=== PATIENT | male | born 1970 | race African-American/Black ===

== ENCOUNTER 2018-11-23 15:27 | Inpatient (IN) | payer BC ==
[2018-11-23 15:48] VITALS: BMI 25.2
[2018-11-23] MEDS ORDERED: KETOROLAC TROMETHAMINE 30 MG/1 ML VIAL IVPUSH ONE ×2 (16:13→18:30)
[2018-11-23] MEDS ORDERED: SODIUM CHLORIDE 1,000 ML IV STA ×2 (16:13→18:30)
[2018-11-23] MEDS ORDERED: KETOROLAC TROMETHAMINE 30 MG/1 ML VIAL ONE ×2 (16:21→18:36)
[2018-11-23] MEDS ORDERED: ACETAMINOPHEN 1000 MG/100 ML VIAL (NON FORMULARY) IVPB ONE (16:34)
[2018-11-23 16:41] LABS: URINE APPEARANCE SLCLOUDY; URINE BILIRUBIN NEGATIVE (<2.0 mg/dL); URINE COLOR YELLOW; URINE GLUCOSE (UA) NEGATIVE (NEGATIVE); URINE KETONE NEGATIVE (NEGATIVE); URINE LEUK ESTERASE NEGATIVE (NEGATIVE); URINE NITRITE NEGATIVE (NEGATIVE); URINE PROTEIN 1+ (NEGATIVE); URINE UROBILINOGEN NEGATIVE mg/dL (0.2-1.0)
[2018-11-23] MEDS ORDERED: morphine SULFATE 4 MG/ML VIAL ONE (16:46)
[2018-11-23] MEDS ORDERED: hydrALAZINE HCL 20 MG/ML VIAL ONE (16:46)
[2018-11-23 16:49] LABS: URINE MUCUS RARE
[2018-11-23] MEDS ORDERED: hydrALAZINE HCL 20 MG/ML VIAL IVPUSH ONE (16:51)
[2018-11-23] MEDS ORDERED: morphine CARPU-JECT 4 MG/1 ML DISP.SYRIN IVPUSH ONE (16:51)
[2018-11-23 16:52] LABS: BASO % 0.4 % (0-2.0); EOS % 0.2 % (0-4.5); HEMATOCRIT 44.8 % (35.4-49); HEMOGLOBIN 15.4 GM/dL (11.7-16.9); LYMPH % 10.3 % (8-40); MCH 32.4 pg (25.7-33.7); MCHC 34.5 g/dl (32.0-35.9); MEAN CELL VOLUME 93.9 fl (80-96); MEAN PLT VOLUME 8.1 fl (7.5-11.1); MONO % 3.6 % (3.8-10.2); NEUT % 85.5 % (42.8-82.8); PLATELET COUNT 256 K/MM3 (134-434); RBC 4.77 M/mm3 (4.00-5.60); RDW 13.2 % (11.9-15.9)
--- NOTE | 2018-11-23 16:54 | PDOC ---
History of Present Illness - General Chief Complaint: Pain, Acute Stated Complaint: KIDNEY PAIN Time Seen by Provider: 11/23/18 16:11 History Source: Patient - History of Present Illness Timing/Duration: reports: constant Quality: reports: severe Abdominal Pain Onset Location: reports: flank Past History - Past Medical History Allergies/Adverse Reactions: Allergies Allergy/AdvReac Type Severity Reaction Status Date / Time No Known Allergies Allergy Verified 11/23/18 15:47 COPD: No HTN: Yes - Surgical History Abdominal Surgery: Yes (hernia repair) - Suicide/Smoking/Psychosocial Hx Smoking History: Former smoker Have you smoked in the past 12 months: No If you are a former smoker, when did you quit?: 2009 Information on smoking cessation initiated: No Hx Alcohol Use: No Drug/Substance Use Hx: Yes (marijuana) Review of Systems - Review of Systems Constitutional: No: Fever Respiratory: No: Shortness of Breath Cardiac (ROS): Yes: Lightheadedness. No: Chest Pain ABD/GI: Yes: Abdominal cramping. No: Diarrhea, Nausea, Vomiting : Yes: Flank Pain, Hematuria. No: Dysuria, Discharge *Physical Exam - Vital Signs Last Vital Signs Temp Pulse Resp BP Pulse Ox 98.5 F 65 18 197/124 H 99 11/23/18 15:44 11/23/18 15:44 11/23/18 15:44 11/23/18 15:44 11/23/18 15:44 - Physical Exam Comments: 11/23/18 17:18 Pt currently pacing in ED complaining of significant back/abdominal pain and states he feels like passing out General Appearance: Yes: Appropriately Dressed, Severe Distress HEENT: positive: Normal Voice Neck: positive: Supple Respiratory/Chest: positive: Lungs Clear, Normal Breath Sounds. negative: Respiratory Distress Cardiovascular: positive: Regular Rate, S1, S2 Gastrointestinal/Abdominal: positive: Normal Bowel Sounds, Tender (to upper abd) , Soft. negative: Distended, Guarding, Rebound Musculoskeletal: negative: CVA Tenderness Integumentary: positive: Dry, Warm Neurologic: positive: Fully Oriented, Alert, Normal Mood/Affect Moderate Sedation - Procedure Monitoring Vital Signs: Procedure Monitoring Vital Signs Temperature 98.5 F 11/23/18 15:44 Pulse Rate 65 11/23/18 15:44 Respiratory Rate 18 11/23/18 15:44 Blood Pressure 197/124 H 11/23/18 15:44 O2 Sat by Pulse Oximetry (%) 99 11/23/18 15:44 ED Treatment Course - LABORATORY CBC & Chemistry Diagram: 11/23/18 16:40 11/23/18 16:40 - ADDITIONAL ORDERS Additional order review: Laboratory Results 11/23/18 16:15 Urine Color Yellow Urine Appearance Slcloudy Urine pH 5.0 Ur Specific [place] 1.014 Urine Protein 1+ H Urine Glucose (UA) Negative Urine Ketones Negative Urine Blood 3+ H Urine Nitrite Negative Urine Bilirubin Negative Urine Urobilinogen Negative Ur Leukocyte Esterase Negative Urine WBC (Auto) None Urine RBC (Auto) 2087 Urine Mucus Rare - RADIOLOGY Radiology Studies Ordered: Category Date Time Status ABDOMEN/PELVIS CTA W/WO CONTR [CT] Stat CT Scan 11/23/18 16:32 Ordered CHEST CTA [CT] Stat CT Scan 11/23/18 16:31 Ordered - Medications Given in the ED: ED Medications Discontinued Medications Generic Name Dose Route Start Last Admin Trade Name Freq PRN Reason Stop Dose Admin Ketorolac Tromethamine 30 mg 11/23/18 16:13 11/23/18 16:44 Toradol Injection - IVPUSH 11/23/18 16:14 Not Given ONCE ONE Medical Decision Making - Medical Decision Making 11/23/18 16:52 48-year-old male, history of hypertension, non-compliant with medication, here with son onset L lower back pain that started 3 hours ago with possible hematuria. Also c/o feeling dizzy at this time. No nausea, vomiting, fever, chills or change in bowel movements. No history of kidney stone. No recent trauma. See exam Sudden onset L lower back/abd pain w/ dizziness in pt with significantly elevated BP in ED R/o dissection vs renal stone Significantly hypertensive here w/ ttp to upper abd -dose of hydralazine (no IV labetalol in facility) -pain control -CTA stat -labs 11/23/18 16:53 Given possible dissection, patient okay to go over for CT without labs as d/w ED attg 11/23/18 18:28 CTA chest, abdomen, pelvis read as negative for dissection. Seen is mild left hydrouteronephrosiss with mild perirenal and periureteral fluid collection associated with acute obstruction. Possible 2-3 mm ureteral stone in mid to lower pelvis, dry CT recommended for better visualization. Pain since resolved with morphine and patient appears well. IVF and flomax in progress. Will rpt BP and consider giving a dose of home BP meds 11/23/18 18:44 Pt signed out to DONG Head at this time *DC/Admit/Observation/Transfer Diagnosis at time of Disposition: Renal colic - Discharge Dispostion Condition at time of disposition: Improved - Referrals Referrals: Jose D Youngblood MD [Primary Care Provider] - - Patient Instructions Printed Discharge Instructions: Kidney Stones -- Adult - Post Discharge Activity
[2018-11-23 17:28] LABS: ALBUMIN 4.2 g/dl (3.4-5.0); ALK PHOS 97 U/L (45-117); ANION GAP 8 MMOL/L (8-16); BILIRUBIN,TOTAL 0.5 mg/dL (0.2-1); BLOOD UREA NITROGEN 12 mg/dL (7-18); CALCIUM 9.5 mg/dL (8.5-10.1); CHLORIDE 106 mmol/L (98-107); CO2 27 mmol/L (21-32); CREATININE 1.2 mg/dL (0.55-1.3); GLUCOSE,RANDOM 105 mg/dL (74-106); POTASSIUM 3.7 mmol/L (3.5-5.1); SGOT/AST 18 U/L (15-37); SGPT/ALT 24 U/L (13-61); SODIUM 141 mmol/L (136-145); TOT PROT 7.9 g/dl (6.4-8.2)
[2018-11-23] MEDS ORDERED: TAMSULOSIN HCL 0.4 MG CAP PO ONE (18:31)
[2018-11-23] MEDS ORDERED: TAMSULOSIN HCL 0.4 MG CAP ONE (18:36)
[2018-11-23] MEDS ORDERED: NITROGLYCERIN 2% OINTMENT - 1GM PACKET TD ONE ×2 (19:25→19:57)
[2018-11-23] MEDS ORDERED: VALSARTAN 40 MG TABLET (FP) PO ONE (19:53)
[2018-11-23] MEDS ORDERED: VALSARTAN 80 MG TABLET (UD) ONE (19:56)
--- NOTE | 2018-11-23 21:58 | PDOC ---
*Physical Exam - Vital Signs Last Vital Signs Temp Pulse Resp BP Pulse Ox 98.5 F 64 18 155/90 100 11/23/18 15:44 11/23/18 19:29 11/23/18 19:29 11/23/18 21:45 11/23/18 19:29 - Physical Exam Comments: 11/23/18 21:52 Sign out from DONG Edgar: 48-year-old male with history of hypertension whose been noncompliant for the past 2 months. Patient he ran out of his lisinopril 10 mg 1 tab daily x2 months (pt's brought empty bottle to the ER and has not had a chance to call his physician for refill. Patient presents to the emergency department complaining of left-sided flank pains in the past 3 hours with questionable hematuria. Patient states he is also complaining of slight dizziness without headache, lightheadedness, nausea/vomiting, fever/chills, blurry vision, neck pain/, back pains, chest pain, shortness of breath, abdominal pains, flank pain, extremity numbness or tingling sensation, Patient was given hydralazine IV/no Labetalol in hosp., 1 inch Nitropaste, Diovan 30 mg PO. Patient's blood pressure was persistent until approximately 2142 hrs. when his blood pressure came down to 150/90/ right arm Patient states this pain has completely resolved in the emergency department. 2243hrs: right arm; 180/128 Left arm 182/132 Heart Score/ECG Review - History History: Slightly suspicious - Electrocardiogram EKG: Normal - Age Age: >/= 65 - Risk Factors Risk Factors Heart Score: Yes Hx Hypertension Based on the list above the patient has:: 1-2 risk factors - Troponin Troponin: </= normal limit (LVH) - Score Heart Score - Total: 3 ED Treatment Course - LABORATORY CBC & Chemistry Diagram: 11/23/18 16:40 11/23/18 16:40 - ADDITIONAL ORDERS Additional order review: Laboratory Results 11/23/18 11/23/18 16:40 16:15 Sodium 141 Potassium 3.7 Chloride 106 Carbon Dioxide 27 Anion Gap 8 BUN 12 Creatinine 1.2 Creat Clearance w eGFR > 60 Random Glucose 105 Calcium 9.5 Total Bilirubin 0.5 AST 18 ALT 24 Alkaline Phosphatase 97 Total Protein 7.9 Albumin 4.2 Urine Color Yellow Urine Appearance Slcloudy Urine pH 5.0 Ur Specific [place] 1.014 Urine Protein 1+ H Urine Glucose (UA) Negative Urine Ketones Negative Urine Blood 3+ H Urine Nitrite Negative Urine Bilirubin Negative Urine Urobilinogen Negative Ur Leukocyte Esterase Negative Urine WBC (Auto) None Urine RBC (Auto) 2087 Urine Mucus Rare 11/23/18 16:40 RBC 4.77 MCV 93.9 MCHC 34.5 RDW 13.2 MPV 8.1 Neutrophils % 85.5 H Lymphocytes % 10.3 Monocytes % 3.6 L Eosinophils % 0.2 Basophils % 0.4 - Medications Given in the ED: ED Medications Discontinued Medications Generic Name Dose Route Start Last Admin Trade Name Freq PRN Reason Stop Dose Admin Acetaminophen 1,000 mg 11/23/18 16:34 11/23/18 16:56 Ofirmev Injection - IVPB 11/23/18 16:35 Not Given ONCE ONE Hydralazine HCl 10 mg 11/23/18 16:51 11/23/18 16:56 Apresoline Injection - IVPUSH 11/23/18 16:52 10 mg ONCE ONE Administration Sodium Chloride 1,000 mls @ 1,000 mls/hr 11/23/18 16:13 11/23/18 16:44 Normal Saline - IV 11/23/18 17:12 1,000 mls/hr ASDIR STA Administration Sodium Chloride 1,000 mls @ 1,000 mls/hr 11/23/18 18:30 11/23/18 18:40 Normal Saline - IV 11/23/18 19:29 1,000 mls/hr ASDIR STA Administration Ketorolac Tromethamine 30 mg 11/23/18 16:13 11/23/18 16:44 Toradol Injection - IVPUSH 11/23/18 16:14 Not Given ONCE ONE Ketorolac Tromethamine 30 mg 11/23/18 18:30 11/23/18 18:40 Toradol Injection - IVPUSH 11/23/18 18:31 30 mg ONCE ONE Administration Morphine Sulfate 4 mg 11/23/18 16:51 11/23/18 16:56 Morphine Injection - IVPUSH 11/23/18 16:52 4 mg ONCE ONE Administration Nitroglycerin 1 inch 11/23/18 19:57 11/23/18 19:58 Nitro-Bid 2% Paste - TD 11/23/18 19:58 1 inch ONCE ONE Administration Tamsulosin HCl 0.4 mg 11/23/18 18:31 11/23/18 18:40 Flomax - PO 11/23/18 18:32 0.4 mg ONCE ONE Administration Valsartan 40 mg 11/23/18 19:53 11/23/18 19:58 Diovan - PO 11/23/18 19:54 40 mg ONCE ONE Administration Progress Note - Progress Note Progress Note: 2157hrs: Called Dr. Blanca Youngblood/ [phone] Covering physician: Dr. Wallace 2208hrs: Spoke to Dr. Wallace/ advised on pt's HTN *DC/Admit/Observation/Transfer Diagnosis at time of Disposition: Renal colic Hypertension Qualifiers: Hypertension type: unspecified Qualified Code(s): I10 - Essential (primary) hypertension - Discharge Dispostion Condition at time of disposition: Guarded Decision to Admit order: Yes - Referrals Referrals: Jose D Youngblood MD [Primary Care Provider] - - Patient Instructions Printed Discharge Instructions: Kidney Stones -- Adult, DI for High Blood Pressure - Post Discharge Activity
--- NOTE | 2018-11-23 23:28 | PN ---
Teaching Attending Note Name of Resident: Dominique Hernandez ATTENDING PHYSICIAN STATEMENT I saw and evaluated the patient. I reviewed the resident's note and discussed the case with the resident. I agree with the resident's findings and plan as documented. SUBJECTIVE: Patient is a 48-year-old man with history of hypertension whose been noncompliant with medications for the past 2 months. Patient he ran out of his lisinopril 10 mg 1 tab daily x2 months. Patient presents to the emergency department complaining of left-sided flank pains in the past 3 hours with questionable hematuria. Patient states he is also complaining of slight dizziness without headache, lightheadedness, nausea/vomiting, fever/chills, blurry vision, neck pain/, back pains, chest pain, shortness of breath, abdominal pains, flank pain, extremity numbness or tingling sensation. In the ER he was given hydralazine IV (no Labetalol in the Hospital), 1 inch Nitropaste, Diovan 30 mg PO. Patient's blood pressure was persistent until approximately 2142 hrs. when his blood pressure came down to 150/90/ right arm. His pain has completely resolved in the ER. OBJECTIVE: Alert Vital Signs Period Temp Pulse Resp BP Sys/Ellis Pulse Ox Last 24 Hr 98.5 F 64-65 18-18 155-197/90-124 99-100 HEENT: No Jaundice, eye redness or discharge, PERRLA, EOMI. No papilledema or retinal hemorrhages; Normocephalic, atraumatic. External ears are normal and hearing is grossly intact. No nasal discharge. Neck: Supple, nontender. No palpable adenopathy or thyromegaly. No JVD Chest: Good effort. Clear to auscultation and percussion. Heart: Regular. No S3, rub or murmur Abdomen: Not distended, soft, nontender and no HSM. No rebound or guarding. Normoactive bowel sounds. Ext: Peripheral pulses intact. No leg edema. Skin: Warm and dry. No petechiae, rash or ecchymosis. Neuro: Alert. Oriented x3. CN 2-12 grossly intact. Sensation grossly intact in all four extremities and DTR are symmetric. Abnormal Lab Results 11/23/18 11/23/18 11/23/18 16:15 16:40 22:30 Neutrophils % 85.5 H Monocytes % 3.6 L Creatine Kinase 365 H Urine Protein 1+ H Urine Blood 3+ H ASSESSMENT AND PLAN: 1. Renal colic and Hypertensive Urgency - CT scan showed left hydroureteronephrosis, kidney stone and no evidence of aortic dissection. Kidney stone likely the cause of hematuria. Started on Flomax. Got morphine and toradol for pain control. Allow liberal oral fluids and trend CPK. Urology consult. Hypertension responded to IV and PO drugs given in the ER. Will restart outpatient antihypertensive drugs and revise regimen to ensure smooth round-the- clock good BP control. Treat with Lisinopril 20 mg bid; HCTZ 12. 5 mg qd and amlodipine 5 mg qd. Needs outpatient workup to exclude secondary hypertension. Nonpharmacologic measures to control hypertension like weight loss, salt restriction and exercise discussed. 2. DVT prophylaxis - Lovenox 40 mg SQ q 24 hours. 3. Advance directives - Full code
[2018-11-23] MEDS ORDERED: MORPHINE SULFATE 2 MG/ML VIAL ONE (23:51)
[2018-11-24] MEDS ORDERED: morphine CARPU-JECT 2 MG/1 ML DISP.SYRIN IVPUSH ONE (00:07)
--- NOTE | 2018-11-24 02:20 | HP ---
CHIEF COMPLAINT: " Left sided flank pain" HISTORY OF PRESENT ILLNESS: Patient is a 48 year old male presented to the ED with the chief complaint of " Left flank pain x 1 day". As per the patient, he was apparently well until this noon, when he suddenly developed pain in the left flank. It was severe, 10/10 in intensity, radiating towards the left suprapubic area, non positional hence came in to the ED for further evaluation. Patient reports he has no h/o renal stones. Noticed hematuria while he was in the ED. Denies any urinary symptoms, no fever, chills, rigors, sweating, chest pain, sob, cough, palpitation. On admission, patient was found to have elevated BP 197/124 mmHg. Patient reports he hasn't taken Lisinopril 10 mg since 2 months as he hasn't filled is prescription. Patient is currently asymptomatic, no headache, dizziness, blurring of vision, numbness or tingling sensation. Bowel/Bladder habit normal. Sleep/Appetite normal prior to his illness. ER course was notable for: (1) Afebrile, Hypertensive to 197/124 mmHg, (2) CT abdomen/Pelvis revealed Left hydroutero with 2-3 mm renal stones (3) 2L NS , Nitro, Hydralazine 10 mg, Diovan 40 mg , Floma 0.4mg Recent Travel: None PAST MEDICAL HISTORY: Hypertension PAST SURGICAL HISTORY: B/L hernia repair Social History: Smoking: smoked for 30 yrs < 1 pack/day, Stopped 15 yrs ago Alcohol: Occasional. Drugs: Denies Family History: Non contributory Allergies No Known Allergies Allergy (Verified 11/23/18 15:47) HOME MEDICATIONS: Lisinopril 10mg PO Daily (hasn't picked up in 2 months) REVIEW OF SYSTEMS CONSTITUTIONAL: Absent: fever, chills, diaphoresis, generalized weakness, malaise, loss of appetite, weight change HEENT: Absent: rhinorrhea, nasal congestion, throat pain, throat swelling, difficulty swallowing, mouth swelling, ear pain, eye pain, visual changes CARDIOVASCULAR: Absent: chest pain, syncope, palpitations, irregular heart rate, lightheadedness , peripheral edema RESPIRATORY: Absent: cough, shortness of breath, dyspnea with exertion, orthopnea, wheezing, stridor, hemoptysis GASTROINTESTINAL: Absent: abdominal pain, abdominal distension, nausea, vomiting, diarrhea, constipation, melena, hematochezia GENITOURINARY: Present: flank pain, Absent: dysuria, frequency, urgency, hesitancy, hematuria,genital pain MUSCULOSKELETAL: Absent: myalgia, arthralgia, joint swelling, back pain, neck pain SKIN: Absent: rash, itching, pallor HEMATOLOGIC/IMMUNOLOGIC: Absent: easy bleeding, easy bruising, lymphadenopathy, frequent infections ENDOCRINE: Absent: unexplained weight gain, unexplained weight loss, heat intolerance, cold intolerance NEUROLOGIC: Absent: headache, focal weakness or paresthesias, dizziness, unsteady gait, seizure, mental status changes, bladder or bowel incontinence PSYCHIATRIC: Absent: anxiety, depression, suicidal or homicidal ideation, hallucinations. PHYSICAL EXAMINATION Vital Signs - 24 hr 11/23/18 11/23/18 11/23/18 15:44 18:40 19:29 Temperature 98.5 F Pulse Rate 65 Pulse Rate [ 64 Right Radial] Respiratory 18 18 Rate Blood Pressure 197/124 H Blood Pressure 173/103 H 169/108 H [Right Arm] O2 Sat by Pulse 99 100 Oximetry (%) 11/23/18 11/24/18 21:45 00:53 Temperature Pulse Rate Pulse Rate [ Right Radial] Respiratory Rate Blood Pressure Blood Pressure 155/90 168/101 H [Right Arm] O2 Sat by Pulse Oximetry (%) GENERAL: Middle aged male, lying in bed, Awake, alert, and fully oriented, in no acute distress. EYES: EOM intact, no pallor or icterus. EARS, NOSE, THROAT: Ears normal, dry mucous membranes. NECK: Supple. No JVD. LUNGS: B/L lungs clear, no added sounds. HEART: Regular rate and rhythm, normal S1 and S2 without murmu. ABDOMEN: Soft, nontender (pt had just got morphine), no organomegaly, BS + MUSCULOSKELETAL: Normal range of motion at all joints. No bony deformities or tenderness. No CVA tenderness. UPPER EXTREMITIES: 2+ pulses, warm, well-perfused. No cyanosis. No clubbing. No peripheral edema. LOWER EXTREMITIES: 2+ pulses, warm, well-perfused. No calf tenderness. No peripheral edema. NEUROLOGICAL: No facial droop. Power 5/5 in all extremities. Sensation intact. Cranial nerves II-XII intact. Normal speech. Gait not observed. PSYCHIATRIC: Cooperative. Good eye contact. Appropriate mood and affect. SKIN: Warm, dry, normal turgor, no rashes or lesions noted, normal capillary refill. Laboratory Results - last 24 hr 11/23/18 11/23/18 11/23/18 16:15 16:40 16:40 WBC 9.0 RBC 4.77 Hgb 15.4 Hct 44.8 MCV 93.9 MCH 32.4 MCHC 34.5 RDW 13.2 Plt Count 256 MPV 8.1 Absolute Neuts (auto) 7.7 Neutrophils % 85.5 H Lymphocytes % 10.3 Monocytes % 3.6 L Eosinophils % 0.2 Basophils % 0.4 Nucleated RBC % 0 Sodium 141 Potassium 3.7 Chloride 106 Carbon Dioxide 27 Anion Gap 8 BUN 12 Creatinine 1.2 Creat Clearance w eGFR > 60 Random Glucose 105 Calcium 9.5 Total Bilirubin 0.5 AST 18 ALT 24 Alkaline Phosphatase 97 Creatine Kinase Creatine Kinase Index CK-MB (CK-2) Troponin I Total Protein 7.9 Albumin 4.2 Urine Color Yellow Urine Appearance Slcloudy Urine pH 5.0 Ur Specific [place] 1.014 Urine Protein 1+ H Urine Glucose (UA) Negative Urine Ketones Negative Urine Blood 3+ H Urine Nitrite Negative Urine Bilirubin Negative Urine Urobilinogen Negative Ur Leukocyte Esterase Negative Urine WBC (Auto) None Urine RBC (Auto) 2087 Urine Mucus Rare 11/23/18 22:30 WBC RBC Hgb Hct MCV MCH MCHC RDW Plt Count MPV Absolute Neuts (auto) Neutrophils % Lymphocytes % Monocytes % Eosinophils % Basophils % Nucleated RBC % Sodium Potassium Chloride Carbon Dioxide Anion Gap BUN Creatinine Creat Clearance w eGFR Random Glucose Calcium Total Bilirubin AST ALT Alkaline Phosphatase Creatine Kinase 365 H Creatine Kinase Index 0.4 CK-MB (CK-2) 1.5 Troponin I 0.02 Total Protein Albumin Urine Color Urine Appearance Urine pH Ur Specific [place] Urine Protein Urine Glucose (UA) Urine Ketones Urine Blood Urine Nitrite Urine Bilirubin Urine Urobilinogen Ur Leukocyte Esterase Urine WBC (Auto) Urine RBC (Auto) Urine Mucus Abdomen/Pelvis CT: Evaluation of the thoracoabdominal aorta demonstrates no CT evidence of dissection. Mild left hydroureteronephrosis is noted with associated mild perirenal and periureteral fluid accumulation is suggestive of acute obstruction. A 2 to 3 mm calcification is seen within the left paramedian aspect of the mid to lower pelvis which may represent a ureteral calculus versus an incidental calcified phleboliths. A follow-up abdomen/pelvic CT study may be performed at this time (without additional intravenous contrast) which would allow opacification of the left ureter and more accurate localization of the described calcification. ASSESSMENT/PLAN: Patient is a 48 year old male presented to the ED with the chief complaint of " Left flank pain x 1 day". # Renal colic came in with left flank pain, with hematuria. UA not consistent with UTI, UA - RBC 2087 Abdomen/pelvis CT showed: Mild Left hydrueteronephrosis suggestive of acute obstruction Received 2L of NS. Cannot give him more fluids due to hypertensive urgency. Flomax started Urology consult requested No abx required at this time, patient is afebrile, no wbc, UA negative for UTI # Hypertensive urgency likely from non compliance to meds and aggravated by pain from renal colic No signs of end organ damage BP 197/124 on admission. Multiple readings around 180's systolic, 110's diastolic Admit to Tele/continuous monitoring of vitals Was given IV Hydralazine 10mg, Diovan 40mg, Flomax. Will continue Amlodipine 5mg, increase Lisinopril to 20mg BID and HCTZ 12.5 mg Daily ECHo ordered Cardiology consult requested Low salt diet # FEN Cannot give IV fluids due to hypertensive urgency, can cause more elevation of BP Electrolytes WNL Sodium controlled diet # Prophylaxis For DVT; On Heparin 5000 IU sq TID For GI: Not indicated # Code Status: Full Code # Dispo: Admit to Tele. Duration of stay unknown. Illness, Investigation and Plan of care explained to the patient. He verbalized understanding. Case discussed with Dr. Manzo.
[2018-11-24] MEDS ORDERED: LISINOPRIL 20 MG TABLET (FP) ONE (02:43)
[2018-11-24] MEDS ORDERED: amLODIPine BESYLATE 5 MG TABLET (FP) ONE (02:43)
[2018-11-24] MEDS ORDERED: HYDROCHLOROTHIAZIDE 25 MG TABLET (FP) ONE (02:43)
[2018-11-24] MEDS: HYDROCHLOROTHIAZIDE 12.5 MG CAPSULE (FP) PO SCH ×2 (02:45→09:25)
[2018-11-24] MEDS: LISINOPRIL 20 MG TABLET (FP) PO SCH ×4 (02:45→21:02)
[2018-11-24] MEDS: amLODIPine BESYLATE 5 MG TABLET (FP) PO SCH ×2 (02:46→09:25)
[2018-11-24] MEDS ORDERED: hydrALAZINE HCL 20 MG/ML VIAL IVPUSH ONE (04:48)
[2018-11-24] MEDS ORDERED: MORPHINE SULFATE 2 MG/ML VIAL IVPUSH PRN (05:27)
[2018-11-24] MEDS ORDERED: hydrALAZINE HCL 20 MG/ML VIAL IVPUSH PRN (05:28)
[2018-11-24] MEDS: HEPARIN NA (PORCINE) 5,000 UNITS/ML 1ML VIAL SQ SCH ×4 (05:48→21:01)
[2018-11-24 07:30] LABS: BASO % 0.3 % (0-2.0); EOS % 0.4 % (0-4.5); HEMATOCRIT 40.1 % (35.4-49); HEMOGLOBIN 13.9 GM/dL (11.7-16.9); LYMPH % 21.3 % (8-40); MCH 32.2 pg (25.7-33.7); MCHC 34.8 g/dl (32.0-35.9); MEAN CELL VOLUME 92.7 fl (80-96); MEAN PLT VOLUME 8.2 fl (7.5-11.1); MONO % 5.3 % (3.8-10.2); NEUT % 72.7 % (42.8-82.8); PLATELET COUNT 230 K/MM3 (134-434); RBC 4.33 M/mm3 (4.00-5.60); RDW 13.3 % (11.9-15.9); WHITE BLOOD COUNT 7.1 K/mm3 (4.0-10.0)
[2018-11-24 08:10] LABS: ANION GAP 6 MMOL/L (8-16); BLOOD UREA NITROGEN 11 mg/dL (7-18); CALCIUM 8.5 mg/dL (8.5-10.1); CHLORIDE 108 mmol/L (98-107); CHOLESTEROL 210 mg/dL (50-200); CO2 27 mmol/L (21-32); CREATININE 1.2 mg/dL (0.55-1.3); GLUCOSE,RANDOM 93 mg/dL (74-106); HDL CHOLESTEROL 66 mg/dL (40-60); POTASSIUM 3.8 mmol/L (3.5-5.1); SODIUM 141 mmol/L (136-145); TRIGLYCERIDES 75 mg/dL (0-150)
--- NOTE | 2018-11-24 11:49 | CON.GU ---
Consult Consult Specialty:: Referred by:: medicine Reason for Consultation:: ureteral calculus - History of Present Illness Chief Complaint: left renal colic and ureteral calculus History of Present Illness: 48 year old male who presents to ER with left renal colic. No fevers. He also has uncontrolled/untreated hypertension. He has no family history of kidney stones. Pain is improved this morning - History Source History Provided By: Patient, Medical Record Limitations to Obtaining History: No Limitations - Past Medical History Renal/: No: Renal Failure, Renal Inusuff, BPH, Cancer, Hematuria, Hemodialysis , Neurogenic Bladder, Renal Calculi, UTI, Other - Alcohol/Substance Use Hx Alcohol Use: No - Smoking History Smoking history: Former smoker Have you smoked in the past 12 months: No If you are a former smoker, when did you quit?: 2009 Home Medications - Allergies Allergies/Adverse Reactions: Allergies Allergy/AdvReac Type Severity Reaction Status Date / Time No Known Allergies Allergy Verified 11/23/18 15:47 Review of Systems - Review of Systems Genitourinary: reports: Flank Pain Physical Exam- Vital Signs: Vital Signs Temperature 98.8 F 11/24/18 09:37 Pulse Rate 78 11/24/18 10:54 Respiratory Rate 18 11/24/18 10:54 Blood Pressure 157/106 H 11/24/18 10:54 O2 Sat by Pulse Oximetry (%) 99 11/24/18 04:08 Constitutional: Yes: Well Nourished, No Distress, Calm Respiratory: Yes: WNL Gastrointestinal: Yes: WNL, Normal Bowel Sounds Renal/: No: Bladder Distention, CVA Tenderness - Left, CVA Tenderness - Right , Prasad Present, Hematuria Labs: CBC, BMP 11/24/18 06:00 11/24/18 06:00 Imaging - Results Cat Scan: Report Reviewed Problem List - Problems (1) Calculus of distal left ureter Assessment/Plan: 3mm Left UVJ stone. High likelihood of passage with hydration and flomax. pain is improved. No evidence of sepsis.. Code(s): N20.1 - CALCULUS OF URETER (2) Hydronephrosis Code(s): N13.30 - UNSPECIFIED HYDRONEPHROSIS
[2018-11-24] MEDS ORDERED: PT OWN MED DRAWER 7, Y5N ONE (12:01)
--- NOTE | 2018-11-24 13:00 | PN ---
Progress Note (short form) - Note Progress Note: Patient is c/o having headache Vital Signs Temperature 98.8 F 11/24/18 09:37 Pulse Rate 78 11/24/18 10:54 Respiratory Rate 18 11/24/18 10:54 Blood Pressure 183/116 H 11/24/18 12:22 O2 Sat by Pulse Oximetry (%) 99 11/24/18 04:08 GENERAL: Middle aged male, lying in bed, Awake, alert, and fully oriented, in no acute distress. EYES: EOM intact, no pallor or icterus. EARS, NOSE, THROAT: Ears normal, dry mucous membranes. NECK: Supple. No JVD. LUNGS: B/L lungs clear, no added sounds. HEART: Regular rate and rhythm, normal S1 and S2 without murmu. ABDOMEN: Soft, nontender (pt had just got morphine), no organomegaly, BS + MUSCULOSKELETAL: Normal range of motion at all joints. No bony deformities or tenderness. No CVA tenderness. EXTREMITIES: 2+ pulses, warm, well-perfused. No cyanosis. No clubbing. No peripheral edema. NEUROLOGICAL: No facial droop. Power 5/5 in all extremities. Sensation intact. Cranial nerves II-XII intact. Normal speech. PSYCHIATRIC: Cooperative. Good eye contact. Appropriate mood and affect. SKIN: Warm, dry, normal turgor, no rashes or lesions noted, normal capillary refill. CBCD WBC 7.1 K/mm3 (4.0-10.0) 11/24/18 06:00 RBC 4.33 M/mm3 (4.00-5.60) 11/24/18 06:00 Hgb 13.9 GM/dL (11.7-16.9) 11/24/18 06:00 Hct 40.1 % (35.4-49) 11/24/18 06:00 MCV 92.7 fl (80-96) 11/24/18 06:00 MCHC 34.8 g/dl (32.0-35.9) 11/24/18 06:00 RDW 13.3 % (11.9-15.9) 11/24/18 06:00 Plt Count 230 K/MM3 (134-434) 11/24/18 06:00 MPV 8.2 fl (7.5-11.1) 11/24/18 06:00 CMP Sodium 141 mmol/L (136-145) 11/24/18 06:00 Potassium 3.8 mmol/L (3.5-5.1) 11/24/18 06:00 Chloride 108 mmol/L (98-107) H 11/24/18 06:00 Carbon Dioxide 27 mmol/L (21-32) 11/24/18 06:00 Anion Gap 6 MMOL/L (8-16) L 11/24/18 06:00 BUN 11 mg/dL (7-18) 11/24/18 06:00 Creatinine 1.2 mg/dL (0.55-1.3) 11/24/18 06:00 Creat Clearance w eGFR > 60 (>60) 11/24/18 06:00 Random Glucose 93 mg/dL (74-106) 11/24/18 06:00 Calcium 8.5 mg/dL (8.5-10.1) 11/24/18 06:00 Total Bilirubin 0.5 mg/dL (0.2-1) 11/23/18 16:40 AST 18 U/L (15-37) 11/23/18 16:40 ALT 24 U/L (13-61) 11/23/18 16:40 Alkaline Phosphatase 97 U/L (45-117) 11/23/18 16:40 Total Protein 7.9 g/dl (6.4-8.2) 11/23/18 16:40 Albumin 4.2 g/dl (3.4-5.0) 11/23/18 16:40 CARDIAC ENZYMES Creatine Kinase 365 U/L (26-308) H 11/23/18 22:30 Troponin I 0.02 ng/ml (0.00-0.05) 11/23/18 22:30 Current Medications Generic Name Dose Route Start Last Admin Trade Name Freq PRN Reason Stop Dose Admin Amlodipine Besylate 5 mg 11/24/18 02:40 11/24/18 09:25 Norvasc - PO 5 mg DAILY GIDEON Administration Heparin Sodium (Porcine) 5,000 unit 11/24/18 06:00 11/24/18 05:48 Heparin - SQ 5,000 unit TID GIDEON Administration Hydralazine HCl 10 mg 11/24/18 05:28 11/24/18 12:08 Apresoline Injection - IVPUSH 10 mg Q8H PRN Administration HYPERTENSION Hydrochlorothiazide 12.5 mg 11/24/18 02:40 11/24/18 09:25 Hctz - PO 12.5 mg DAILY GIDEON Administration Lisinopril 20 mg 11/24/18 02:39 11/24/18 09:25 Prinivil PO 20 mg BID GIDEON Administration Morphine Sulfate 2 mg 11/24/18 05:27 Morphine Sulfate IVPUSH Q3H PRN PAIN LEVEL 7 - 10 Tamsulosin HCl 0.4 mg 11/25/18 08:30 Flomax - PO DAILY@0830 [facility] Laboratory Tests 11/24/18 06:00 Triglycerides 75 Cholesterol 210 H Total LDL Cholesterol 126 H HDL Cholesterol 66 H Abdomen/Pelvis CT: Evaluation of the thoracoabdominal aorta demonstrates no CT evidence of dissection. Mild left hydroureteronephrosis is noted with associated mild perirenal and periureteral fluid accumulation is suggestive of acute obstruction. A 2 to 3 mm calcification is seen within the left paramedian aspect of the mid to lower pelvis which may represent a ureteral calculus versus an incidental calcified phleboliths. A follow-up abdomen/pelvic CT study may be performed at this time (without additional intravenous contrast) which would allow opacification of the left ureter and more accurate localization of the described calcification. ASSESSMENT/PLAN: Patient is a 48 year old male presented to the ED with Left flank pain x 1 day. # Calculus of distal left ureter with 3mm left UVJ stne: patient has no further pain. on IVF and flomax continue # Hydronephrosis ; will repeat UA since no gross hematuria as per patient. # Hypertensive urgency likely from non compliance to meds and aggravated by pain from renal colic DVT Px:On Heparin 5000 IU sq TID Code Status: Full Code Visit type - Emergency Visit Emergency Visit: Yes ED Registration Date: 11/24/18 Care time: The patient presented to the Emergency Department on the above date and was hospitalized for further evaluation of their emergent condition. - New Patient This patient is new to me today: Yes Date on this admission: 11/24/18 - Critical Care Critical Care patient: No - Discharge Referral Referred to [facility] No
[2018-11-24] MEDS ORDERED: amLODIPine BESYLATE 5 MG TABLET (FP) PO ONE (13:58)
--- NOTE | 2018-11-24 15:31 | CON.CARD ---
Consult Consult Specialty:: Cardiology for Dr. Ruiz Referred by:: Hospitalist Medicine Reason for Consultation:: Hypertensive urgency - History of Present Illness Chief Complaint: Left flank pain History of Present Illness: Patient is a 48-year-old man with history of hypertension whose been noncompliant with medications for the past 2 months. Patient he ran out of his lisinopril 10 mg 1 tab daily x2 months. Patient presents to the emergency department complaining of left-sided flank pains in the past 3 hours with hematuria since resolved. Patient states he is also complaining of slight dizziness without headache, lightheadedness, nausea/vomiting, fever/chills, blurry vision, neck pain/, back pains, chest pain, shortness of breath, near or true syncope, palpitations, orthopnea, PND, LE edema, extremity numbness or tingling sensation. In the ER he was given hydralazine IV (no Labetalol in the Hospital), 1 inch Nitropaste, Diovan 30 mg PO. Patient's blood pressure was persistent until approximately 2142 hrs. when his blood pressure came down to 150/90/ right arm. His pain has completely resolved since admission. - History Source History Provided By: Patient Limitations to Obtaining History: No Limitations - Past Medical History Cardio/Vascular: Yes: HTN Renal/: No: Renal Failure, Renal Inusuff, BPH, Cancer, Hematuria, Hemodialysis , Neurogenic Bladder, Renal Calculi, UTI, Other - Alcohol/Substance Use Hx Alcohol Use: No - Smoking History Smoking history: Former smoker Have you smoked in the past 12 months: No If you are a former smoker, when did you quit?: 2009 Home Medications - Allergies Allergies/Adverse Reactions: Allergies Allergy/AdvReac Type Severity Reaction Status Date / Time No Known Allergies Allergy Verified 11/23/18 15:47 Review of Systems - Review of Systems Genitourinary: reports: Flank Pain, Hematuria Vital Signs: Vital Signs Temperature 98.4 F 11/24/18 14:21 Pulse Rate 110 H 11/24/18 14:21 Respiratory Rate 18 11/24/18 14:21 Blood Pressure 162/111 H 11/24/18 14:21 O2 Sat by Pulse Oximetry (%) 99 11/24/18 04:08 Constitutional: Yes: No Distress, Calm Neck: Yes: Supple Respiratory: Yes: Regular, CTA Bilaterally Gastrointestinal: Yes: Normal Bowel Sounds, Soft Cardiovascular: Yes: Regular Rate and Rhythm JVD: No Carotid Bruit: No Edema: No - Other Data Labs, Other Data: CBC, BMP 11/24/18 06:00 11/24/18 06:00 Troponin, BNP 11/23/18 22:30 Troponin I 0.02 Troponin, BNP 11/23/18 22:30 Troponin I 0.02 Not available for review Imaging - Results Chest X-ray: Report Reviewed (NAD) Cat Scan: Report Reviewed (11/23/18 18:28 CTA chest, abdomen, pelvis read as negative for dissection. Seen is mild left hydrouteronephrosiss with mild perirenal and periureteral fluid collection associated with acute obstruction. Possible 2-3 mm ureteral stone in mid to lower pelvis, dry CT recommended for better visualization.) Problem List - Problems (1) Calculus of distal left ureter Code(s): N20.1 - CALCULUS OF URETER (2) Hydronephrosis Code(s): N13.30 - UNSPECIFIED HYDRONEPHROSIS Qualifiers: Hydronephrosis type: unspecified Qualified Code(s): N13.30 - Unspecified hydronephrosis (3) Hypertension Code(s): I10 - ESSENTIAL (PRIMARY) HYPERTENSION Qualifiers: Hypertension type: unspecified Qualified Code(s): I10 - Essential (primary ) hypertension (4) Renal colic Code(s): N23 - UNSPECIFIED RENAL COLIC Assessment/Plan 1. Hypertensive urgency 2. Renal colic with left hydroureteronephrosis, 3mm Left UVJ stone 3. Hyperlipidemia 4. Medication noncompliance P:1. Analgesia as needed, urology input appreciated, high likelihood of passage with hydration and flomax. pain is resolved. No evidence of sepsis. 2. Resumed outpatient antihypertensive regimen with Lisinopril 20 mg bid, HCTZ 12.5 mg qd and amlodipine 10 mg qd. Needs outpatient workup to exclude secondary hypertension. Nonpharmacologic measures to control hypertension like weight loss, salt restriction and exercise discussed. 3. Echo to assess ventricular and valve fxn, review ECG already performed 4. Thank you for consultative opportunity, emphasized importance of medication compliance.
[2018-11-24] MEDS: ACETAMINOPHEN 650 MG/20.3 ML ORAL SOLUTION (CUPS) PO PRN (16:19)
--- NOTE | 2018-11-24 16:38 | EKG ---
Test Reason : Blood Pressure : / mmHG Vent. Rate : 063 BPM Atrial Rate : 063 BPM P-R Int : 152 ms QRS Dur : 088 ms QT Int : 442 ms P-R-T Axes : -06 030 008 degrees QTc Int : 452 ms NORMAL SINUS RHYTHM WITH SINUS ARRHYTHMIA MINIMAL VOLTAGE CRITERIA FOR LVH, MAY BE NORMAL VARIANT SEPTAL INFARCT , AGE UNDETERMINED T WAVE ABNORMALITY, CONSIDER LATERAL ISCHEMIA ABNORMAL ECG NO PREVIOUS ECGS AVAILABLE Confirmed by Krupa Ellis ([id number]) on 11/24/2018 4:38:06 PM Referred By: SERGE UMANA Confirmed By:Krupa Ellis
[2018-11-24] MEDS: SODIUM CHLORIDE 0.45% 1,000 ML IV SCH (20:34)
[2018-11-24 20:49] LABS: URINE APPEARANCE CLEAR; URINE BILIRUBIN NEGATIVE (<2.0 mg/dL); URINE COLOR STRAW; URINE GLUCOSE (UA) NEGATIVE (NEGATIVE); URINE KETONE NEGATIVE (NEGATIVE); URINE LEUK ESTERASE NEGATIVE (NEGATIVE); URINE NITRITE NEGATIVE (NEGATIVE); URINE PROTEIN NEGATIVE (NEGATIVE); URINE UROBILINOGEN NEGATIVE mg/dL (0.2-1.0)
[2018-11-24 21:08] LABS: ALBUMIN 3.8 g/dl (3.4-5.0); ALK PHOS 88 U/L (45-117); ANION GAP 7 MMOL/L (8-16); BILIRUBIN,TOTAL 0.6 mg/dL (0.2-1); BLOOD UREA NITROGEN 11 mg/dL (7-18); CALCIUM 9.2 mg/dL (8.5-10.1); CHLORIDE 104 mmol/L (98-107); CO2 28 mmol/L (21-32); CREATININE 1.2 mg/dL (0.55-1.3); GLUCOSE,RANDOM 97 mg/dL (74-106); POTASSIUM 3.3 mmol/L (3.5-5.1); SGOT/AST 18 U/L (15-37); SGPT/ALT 23 U/L (13-61); SODIUM 139 mmol/L (136-145); TOT PROT 7.2 g/dl (6.4-8.2)
[2018-11-24 21:26] LABS: URINE BACTERIA RARE /hpf (NONE SEEN)
[2018-11-25] MEDS: ACETAMINOPHEN 650 MG/20.3 ML ORAL SOLUTION (CUPS) PO PRN ×2 (01:50→18:32)
[2018-11-25] MEDS: HEPARIN NA (PORCINE) 5,000 UNITS/ML 1ML VIAL SQ SCH ×3 (05:20→20:59)
[2018-11-25 06:00] LABS: BASO % 0.7 % (0-2.0); EOS % 0.6 % (0-4.5); HEMATOCRIT 42.7 % (35.4-49); HEMOGLOBIN 14.8 GM/dL (11.7-16.9); LYMPH % 35.2 % (8-40); MCHC 34.7 g/dl (32.0-35.9); MEAN CELL VOLUME 92.5 fl (80-96); MEAN PLT VOLUME 7.8 fl (7.5-11.1); MONO % 6.5 % (3.8-10.2); PLATELET COUNT 232 K/MM3 (134-434); RBC 4.62 M/mm3 (4.00-5.60); RDW 13.3 % (11.9-15.9); WHITE BLOOD COUNT 5.3 K/mm3 (4.0-10.0)
[2018-11-25] MEDS: SODIUM CHLORIDE 0.45% 1,000 ML IV SCH (06:49)
[2018-11-25] MEDS ORDERED: PT OWN MED DRAWER 7, Y5N ONE (08:48)
[2018-11-25] MEDS: amLODIPine BESYLATE 10 MG TABLET (FP) PO SCH (09:09)
[2018-11-25] MEDS: TAMSULOSIN HCL 0.4 MG CAP PO SCH (09:09)
[2018-11-25] MEDS: LISINOPRIL 20 MG TABLET (FP) PO SCH ×2 (09:09→20:59)
[2018-11-25] MEDS ORDERED: POTASSIUM CHLORIDE TABS 20 MEQ TABLET.ER (FP) PO ONE (10:45)
[2018-11-25] MEDS ORDERED: ALPRAZolam 0.25 MG TABLET PO ONE (11:23)
[2018-11-25] MEDS: HYDROCHLOROTHIAZIDE 12.5 MG CAPSULE (FP) PO SCH (12:15)
--- NOTE | 2018-11-25 14:19 | PN ---
Physical Exam: SUBJECTIVE: Patient seen and examined at bedside this morning. No acute events overnight. Patient reports minimal LLQ pain. He also noted passage of "grainy material like pepper" in his urine last night. Patient reports resolution of gross hematuria. Patient a little anxious over his elevated blood pressure. Otherwise, denies headache, dizziness, fever, chills, nausea, vomiting, chest pain, SOB, abdominal pain, dairrhea, urinary symptoms. OBJECTIVE: Vital Signs Period Temp Pulse Resp BP Sys/Ellis Pulse Ox Last 24 Hr 97.1 F-98.9 F 56-110 16-20 162-183/93-122 97-97 GENERAL: The patient is awake, alert, and fully oriented, in no acute distress. HEAD: Normal with no signs of trauma. EYES: PERRLA, EOMI, sclera anicteric, conjunctiva clear. ENT: Ears normal, oropharynx clear without exudates, moist mucous membranes. NECK: Trachea midline, full range of motion, supple. LUNGS: Breath sounds equal, clear to auscultation bilaterally. HEART: Regular rate and rhythm, S1, S2 without murmur, rub or gallop. ABDOMEN: Soft, nontender, nondistended, normoactive bowel sounds. EXTREMITIES: 2+ pulses, warm, well-perfused, no edema. NEUROLOGICAL: Cranial nerves II through XII grossly intact. Normal speech, normal gait. PSYCH: Normal mood, normal affect. SKIN: Warm, dry, normal turgor, no rashes or lesions noted Laboratory Results - last 24 hr 11/24/18 11/24/18 11/25/18 20:25 20:29 05:50 WBC 5.3 RBC 4.62 Hgb 14.8 Hct 42.7 MCV 92.5 MCH 32.0 MCHC 34.7 RDW 13.3 Plt Count 232 MPV 7.8 Absolute Neuts (auto) 3.0 Neutrophils % 57.0 D Lymphocytes % 35.2 D Monocytes % 6.5 Eosinophils % 0.6 Basophils % 0.7 Nucleated RBC % 0 Sodium 139 Potassium 3.3 L Chloride 104 Carbon Dioxide 28 Anion Gap 7 L BUN 11 Creatinine 1.2 Creat Clearance w eGFR > 60 Random Glucose 97 Calcium 9.2 Total Bilirubin 0.6 AST 18 ALT 23 Alkaline Phosphatase 88 Total Protein 7.2 Albumin 3.8 Urine Color Straw Urine Appearance Clear Urine pH 6.0 Ur Specific [place] 1.005 L Urine Protein Negative Urine Glucose (UA) Negative Urine Ketones Negative Urine Blood 1+ H Urine Nitrite Negative Urine Bilirubin Negative Urine Urobilinogen Negative Ur Leukocyte Esterase Negative Urine WBC (Auto) 1 Urine RBC (Auto) <1 Urine Bacteria Rare Active Medications Generic Name Dose Route Start Last Admin Trade Name Freq PRN Reason Stop Dose Admin Acetaminophen 650 mg 11/24/18 15:30 11/25/18 01:50 Tylenol Oral Solution - PO 650 mg Q6H PRN Administration HEADACHE Amlodipine Besylate 10 mg 11/25/18 10:00 11/25/18 09:09 Norvasc - PO 10 mg DAILY GIDEON Administration Heparin Sodium (Porcine) 5,000 unit 11/24/18 06:00 11/25/18 13:31 Heparin - SQ Not Given TID GIDEON Hydrochlorothiazide 12.5 mg 11/25/18 11:30 11/25/18 12:15 Hctz - PO 12.5 mg DAILY GIDEON Administration Sodium Chloride 1,000 mls @ 150 mls/hr 11/24/18 18:45 11/25/18 06:49 1/2 Normal Saline IV 150 mls/hr ASDIR GIDEON Administration Lisinopril 20 mg 11/24/18 02:39 11/25/18 09:09 Prinivil PO 20 mg BID GIDEON Administration Morphine Sulfate 2 mg 11/24/18 05:27 Morphine Sulfate IVPUSH Q3H PRN PAIN LEVEL 7 - 10 Tamsulosin HCl 0.4 mg 11/25/18 08:30 11/25/18 09:09 Flomax - PO 0.4 mg DAILY@0830 [facility] Administration -CT AP: Evaluation of the thoracoabdominal aorta demonstrates no CT evidence of dissection. Mild left hydroureteronephrosis is noted with associated mild perirenal and periureteral fluid accumulation is suggestive of acute obstruction. A 2 to 3 mm calcification is seen within the left paramedian aspect of the mid to lower pelvis which may represent a ureteral calculus versus an incidental calcified phleboliths. A follow-up abdomen/pelvic CT study may be performed at this time (without additional intravenous contrast) which would allow opacification of the left ureter and more accurate localization of the described calcification. ASSESSMENT/PLAN: Patient is a 48 year old male with past medical history of HTN, presented with Left flank pain for 1 day. At the ED, patient was noted to have elevated blood pressure of 197/124. #Renal colic 2/2 Left ureteral calculus: improved -CT AP revealed mild left hydroureteronephrosis suggestive of acute obstruction. -Urology (Dr. Ely) consulted. Recommendations appreciated. -High likelihood of passage of 3mm left UVJ stone with hydration and flomax -Continue IV fluids -Tamsulosin 0.4mg daily -No signs of sepsis, no antibiotics indicated at this time. #Hypertensive urgency -Likely 2/2 medication noncompliance that was aggravated by renal colic -Continue Lisinopril 20mg BID and HCTZ 12.5mg daily -Amlodipine 10mg daily added -Cardiology (Dr. Burton) consulted. REcommendations appreciated. -Continue Lisinopril, HCTZ and amlodipine -Needs outpatient work-up to exclude secondary hypertension -Nonpharmacologic measures like weight loss, salt restriction and exercise to control HTN -Echo to assess ventricular valve function -Emphasized importance of medication noncompliance. #FEN -IV 1/2 NS @125ml/hr -Electrolytes wnl, routine bmp monitoring -Sodium controlled diet #Prophylaxis -Heparin 5000unit sq tid #Disposition -full code -admit to med-surg Visit type - Emergency Visit Emergency Visit: Yes ED Registration Date: 11/24/18 Care time: The patient presented to the Emergency Department on the above date and was hospitalized for further evaluation of their emergent condition. - New Patient This patient is new to me today: Yes Date on this admission: 11/26/18 - Critical Care Critical Care patient: No
--- NOTE | 2018-11-25 15:05 | PN ---
Progress Note, Physician Chief Complaint: Cardiology for Dr. Rojas History of Present Illness: No further left flank discomfort, BP remains elevated. - Current Medication List Current Medications: Active Medications Acetaminophen (Tylenol Oral Solution -) 650 mg PO Q6H PRN PRN Reason: HEADACHE Last Admin: 11/25/18 01:50 Dose: 650 mg Amlodipine Besylate (Norvasc -) 10 mg PO DAILY [facility] Last Admin: 11/25/18 09:09 Dose: 10 mg Heparin Sodium (Porcine) (Heparin -) 5,000 unit SQ TID [facility] Last Admin: 11/25/18 13:31 Dose: Not Given Hydrochlorothiazide (Hctz -) 12.5 mg PO DAILY [facility] Last Admin: 11/25/18 12:15 Dose: 12.5 mg Sodium Chloride (1/2 Normal Saline) 1,000 mls @ 150 mls/hr IV ASDIR [facility] Last Admin: 11/25/18 06:49 Dose: 150 mls/hr Lisinopril (Prinivil) 20 mg PO BID [facility] Last Admin: 11/25/18 09:09 Dose: 20 mg Morphine Sulfate (Morphine Sulfate) 2 mg IVPUSH Q3H PRN PRN Reason: PAIN LEVEL 7 - 10 Tamsulosin HCl (Flomax -) 0.4 mg PO DAILY@0830 [facility] Last Admin: 11/25/18 09:09 Dose: 0.4 mg - Objective Vital Signs: Vital Signs Temperature 98.9 F 11/25/18 13:55 Pulse Rate 85 11/25/18 13:55 Respiratory Rate 18 11/25/18 13:55 Blood Pressure 176/105 H 11/25/18 13:55 O2 Sat by Pulse Oximetry (%) 97 11/25/18 09:00 Constitutional: Yes: No Distress, Calm, Thin HENT: Yes: Atraumatic Neck: Yes: Supple Cardiovascular: Yes: Regular Rate and Rhythm Respiratory: Yes: Regular, CTA Bilaterally Gastrointestinal: Yes: Normal Bowel Sounds, Soft Edema: No Labs: CBC, BMP 11/25/18 05:50 11/24/18 20:29 - ....Imaging EKG: Report Reviewed (NSR @ 63 min criteria LVH with repol abnl) Problem List - Problems (1) Calculus of distal left ureter Code(s): N20.1 - CALCULUS OF URETER (2) Hydronephrosis Code(s): N13.30 - UNSPECIFIED HYDRONEPHROSIS Qualifiers: Hydronephrosis type: unspecified Qualified Code(s): N13.30 - Unspecified hydronephrosis (3) Hypertension Code(s): I10 - ESSENTIAL (PRIMARY) HYPERTENSION Qualifiers: Hypertension type: unspecified Qualified Code(s): I10 - Essential (primary ) hypertension (4) Renal colic Code(s): N23 - UNSPECIFIED RENAL COLIC Assessment/Plan 1. Hypertensive urgency 2. Renal colic with left hydroureteronephrosis, 3mm Left UVJ stone since passed 3. Hyperlipidemia 4. Medication noncompliance P:1. Analgesia as needed, urology input appreciated, high likelihood of passage with hydration and flomax. pain is resolved. No evidence of sepsis. 2. Continue antihypertensive regimen with Lisinopril 20 mg bid, HCTZ 12.5 mg qd and amlodipine 10 mg qd, add carvedilol 6.25 bid and uptitrate as tolerated. Needs outpatient workup to exclude secondary hypertension. Nonpharmacologic measures to control hypertension like weight loss, salt restriction and exercise discussed. 3. Echo to assess ventricular and valve fxn, replete K
[2018-11-25] MEDS: CARVEDILOL 6.25 MG TABLET (FP) PO SCH ×2 (16:21→20:59)
[2018-11-26] MEDS: ACETAMINOPHEN 650 MG/20.3 ML ORAL SOLUTION (CUPS) PO PRN (05:58)
[2018-11-26] MEDS: HEPARIN NA (PORCINE) 5,000 UNITS/ML 1ML VIAL SQ SCH ×3 (06:37→21:24)
[2018-11-26 07:44] LABS: ANION GAP 9 MMOL/L (8-16); BLOOD UREA NITROGEN 13 mg/dL (7-18); CALCIUM 9.5 mg/dL (8.5-10.1); CHLORIDE 100 mmol/L (98-107); CO2 28 mmol/L (21-32); CREATININE 1.4 mg/dL (0.55-1.3); GLUCOSE,RANDOM 89 mg/dL (74-106); POTASSIUM 4.1 mmol/L (3.5-5.1); SODIUM 138 mmol/L (136-145)
--- NOTE | 2018-11-26 09:00 | PN ---
Progress Note, Physician History of Present Illness: Patient is a 48-year-old man with history of hypertension whose been noncompliant with medications for the past 2 months. Patient he ran out of his lisinopril 10 mg 1 tab daily x2 months. Patient presents to the emergency department complaining of left-sided flank pains in the past 3 hours with hematuria since resolved. Patient states he is also complaining of slight dizziness without headache, lightheadedness, nausea/vomiting, fever/chills, blurry vision, neck pain/, back pains, chest pain, shortness of breath, near or true syncope, palpitations, orthopnea, PND, LE edema, extremity numbness or tingling sensation. In the ER he was given hydralazine IV (no Labetalol in the Hospital), 1 inch Nitropaste, Diovan 30 mg PO. Patient's blood pressure was persistent until approximately 2142 hrs. when his blood pressure came down to 150/90/ right arm. His pain has completely resolved since admission. - Current Medication List Current Medications: Active Medications Acetaminophen (Tylenol Oral Solution -) 650 mg PO Q6H PRN PRN Reason: HEADACHE Last Admin: 11/26/18 05:58 Dose: 650 mg Amlodipine Besylate (Norvasc -) 10 mg PO DAILY [facility] Last Admin: 11/25/18 09:09 Dose: 10 mg Carvedilol (Coreg -) 6.25 mg PO BID [facility] Last Admin: 11/25/18 20:59 Dose: 6.25 mg Heparin Sodium (Porcine) (Heparin -) 5,000 unit SQ TID [facility] Last Admin: 11/26/18 06:37 Dose: Not Given Hydrochlorothiazide (Hctz -) 12.5 mg PO DAILY [facility] Last Admin: 11/25/18 12:15 Dose: 12.5 mg Lisinopril (Prinivil) 20 mg PO BID [facility] Last Admin: 11/25/18 20:59 Dose: 20 mg Morphine Sulfate (Morphine Sulfate) 2 mg IVPUSH Q3H PRN PRN Reason: PAIN LEVEL 7 - 10 Tamsulosin HCl (Flomax -) 0.4 mg PO DAILY@0830 [facility] Last Admin: 11/25/18 09:09 Dose: 0.4 mg - Objective Vital Signs: Vital Signs Temperature 98.6 F 11/26/18 06:00 Pulse Rate 71 11/26/18 06:00 Respiratory Rate 20 11/26/18 06:00 Blood Pressure 157/109 H 11/26/18 06:00 O2 Sat by Pulse Oximetry (%) 97 11/25/18 20:00 Eyes: Yes: WNL, Conjunctiva Clear, EOM Intact HENT: Yes: WNL, Atraumatic, Normocephalic Neck: Yes: WNL, Supple, Trachea Midline Cardiovascular: Yes: WNL, Regular Rate and Rhythm Respiratory: Yes: WNL, Regular, CTA Bilaterally Gastrointestinal: Yes: WNL, Normal Bowel Sounds Genitourinary: Yes: WNL Musculoskeletal: Yes: WNL Extremities: Yes: WNL Edema: No Integumentary: Yes: WNL Neurological: Yes: WNL, Alert, Oriented ...Motor Strength: WNL Psychiatric: Yes: WNL Labs: CBC, BMP 11/25/18 05:50 11/26/18 05:30 Problem List - Problems (1) Calculus of distal left ureter Code(s): N20.1 - CALCULUS OF URETER (2) Hydronephrosis Code(s): N13.30 - UNSPECIFIED HYDRONEPHROSIS Qualifiers: Hydronephrosis type: unspecified Qualified Code(s): N13.30 - Unspecified hydronephrosis (3) Hypertension Code(s): I10 - ESSENTIAL (PRIMARY) HYPERTENSION Qualifiers: Hypertension type: unspecified Qualified Code(s): I10 - Essential (primary ) hypertension (4) Renal colic Code(s): N23 - UNSPECIFIED RENAL COLIC Assessment/Plan Assessment/Plan 1. Hypertensive urgency 2. Renal colic with left hydroureteronephrosis, 3mm Left UVJ stone since passed 3. Hyperlipidemia 4. Medication noncompliance P:1. Analgesia as needed, urology input appreciated, high likelihood of passage with hydration and flomax. pain is resolved. No evidence of sepsis. 2. Continue antihypertensive regimen with Lisinopril 20 mg bid, HCTZ 12.5 mg qd and amlodipine 10 mg qd, add carvedilol 6.25 bid and uptitrate as tolerated. Needs outpatient workup to exclude secondary hypertension. Nonpharmacologic measures to control hypertension like weight loss, salt restriction and exercise discussed. 3. Echo to assess ventricular and valve fxn, replete K
[2018-11-26] MEDS: LISINOPRIL 20 MG TABLET (FP) PO SCH (09:34)
[2018-11-26] MEDS: amLODIPine BESYLATE 10 MG TABLET (FP) PO SCH (09:34)
[2018-11-26] MEDS: HYDROCHLOROTHIAZIDE 12.5 MG CAPSULE (FP) PO SCH (09:34)
[2018-11-26] MEDS: CARVEDILOL 6.25 MG TABLET (FP) PO SCH (09:34)
[2018-11-26] MEDS: TAMSULOSIN HCL 0.4 MG CAP PO SCH (09:34)
[2018-11-26] MEDS ORDERED: LABETALOL HCL 100 MG TABLET (FP) PO ONE (11:10)
--- NOTE | 2018-11-26 14:17 | ECHO ---
Name: JOSE TAVO Exam:Adult Echocardiogram Study Date: 11/26/2018 08:33 AM Age: 48 yrs Reason For Study: EF Height: 69 in Weight: 171 lb BSA: 1.9 m2 MMode/2D Measurements & Calculations IVSd: 1.4 cm Ao root diam: 3.5 cm LVIDd: 4.0 cm LA dimension: 3.3 cm LVIDs: 3.0 cm LVPWd: 1.6 cm EDV(Teich): 71.0 ml ESV(Teich): 34.3 ml Doppler Measurements & Calculations MV E max torito: 47.5 cm/sec TR max torito: 191.4 cm/sec MV A max torito: 69.4 cm/sec TR max P.7 mmHg MV E/A: 0.68 MV dec time: 0.19 sec PI Vmax: 129.0 cm/sec Procedure A complete two-dimensional transthoracic echocardiogram was performed (2D, M-mode, Doppler and color flow Doppler). Left Ventricle The left ventricle is normal in size. There is moderate concentric left ventricular hypertrophy. Left ventricular systolic function is normal. Ejection Fraction = 60-65%. No regional wall motion abnormal ities noted. Right Ventricle The right ventricle is normal size. The right ventricular systolic function is normal. Atria The left atrial size is normal. Right atrial size is normal. Mitral Valve The mitral valve is normal in structure and function. There is mild mitral regurgitation. Tricuspid Valve The tricuspid valve is normal in structure and function. There is mild tricuspid regurgitation. Right ventricular systolic pressure is normal. Aortic Valve The aortic valve is normal in structure and function. Mild aortic regurgitation. Pulmonic Valve The pulmonic valve is not well visualized. Great Vessels The aortic root is normal size. Pericardium/Pleura There is no pericardial effusion. Interpretation Summary The left ventricle is normal in size. There is moderate concentric left ventricular hypertrophy. Left ventricular systolic function is normal. No regional wall motion abnormalities noted. Ejection Fraction = 60-65%. The right ventricular systolic function is normal. The left atrial size is normal. Right atrial size is normal. There is mild mitral regurgitation. There is mild tricuspid regurgitation. Right ventricular systolic pressure is normal. Mild aortic regurgitation. There is no pericardial effusion. Previous study is not available for comparison Kirill Trevino MD 11/26/2018 02:16 PM
--- NOTE | 2018-11-26 17:22 | PN ---
Physical Exam: SUBJECTIVE: Patient seen and examined at bedside this morning. No acute events overnight. Patient has no complaints. He is walking around, without any headache , dizziness, weakness, chest pain, SOB. OBJECTIVE: Vital Signs Period Temp Pulse Resp BP Sys/Ellis Pulse Ox Last 24 Hr 97.7 F-99 F 57-90 16-20 150-168/109-123 97-98 GENERAL: The patient is awake, alert, and fully oriented, in no acute distress. HEAD: Normal with no signs of trauma. EYES: PERRLA, EOMI, sclera anicteric, conjunctiva clear. ENT: Ears normal, oropharynx clear without exudates, moist mucous membranes. NECK: Trachea midline, full range of motion, supple. LUNGS: Breath sounds equal, clear to auscultation bilaterally. HEART: Regular rate and rhythm, S1, S2 without murmur, rub or gallop. ABDOMEN: Soft, nontender, nondistended, normoactive bowel sounds. EXTREMITIES: 2+ pulses, warm, well-perfused, no edema. NEUROLOGICAL: Cranial nerves II through XII grossly intact. Normal speech, normal gait. PSYCH: Normal mood, normal affect. SKIN: Warm, dry, normal turgor, no rashes or lesions noted Laboratory Results - last 24 hr 11/26/18 05:30 Sodium 138 Potassium 4.1 Chloride 100 Carbon Dioxide 28 Anion Gap 9 BUN 13 Creatinine 1.4 H Creat Clearance w eGFR 54.32 Random Glucose 89 Calcium 9.5 Active Medications Generic Name Dose Route Start Last Admin Trade Name Freq PRN Reason Stop Dose Admin Acetaminophen 650 mg 11/24/18 15:30 11/26/18 05:58 Tylenol Oral Solution - PO 650 mg Q6H PRN Administration HEADACHE Amlodipine Besylate 10 mg 11/25/18 10:00 11/26/18 09:34 Norvasc - PO 10 mg DAILY GIDEON Administration Heparin Sodium (Porcine) 5,000 unit 11/24/18 06:00 11/26/18 14:29 Heparin - SQ Not Given TID GIDEON Hydrochlorothiazide 12.5 mg 11/25/18 11:30 11/26/18 09:34 Hctz - PO 12.5 mg DAILY GIDEON Administration Sodium Chloride 1,000 mls @ 100 mls/hr 11/26/18 11:00 1/2 Normal Saline IV ASDIR GIDEON Labetalol HCl 200 mg 11/26/18 22:00 Normodyne - PO BID [facility] Lisinopril 20 mg 11/27/18 10:00 Prinivil PO DAILY [facility] Morphine Sulfate 2 mg 11/24/18 05:27 Morphine Sulfate IVPUSH Q3H PRN PAIN LEVEL 7 - 10 Tamsulosin HCl 0.4 mg 11/25/18 08:30 11/26/18 09:34 Flomax - PO 0.4 mg DAILY@0830 GIDEON Administration -CT AP: Evaluation of the thoracoabdominal aorta demonstrates no CT evidence of dissection. Mild left hydroureteronephrosis is noted with associated mild perirenal and periureteral fluid accumulation is suggestive of acute obstruction. A 2 to 3 mm calcification is seen within the left paramedian aspect of the mid to lower pelvis which may represent a ureteral calculus versus an incidental calcified phleboliths. A follow-up abdomen/pelvic CT study may be performed at this time (without additional intravenous contrast) which would allow opacification of the left ureter and more accurate localization of the described calcification. ASSESSMENT/PLAN: Patient is a 48 year old male with past medical history of HTN, presented with Left flank pain for 1 day. At the ED, patient was noted to have elevated blood pressure of 197/124. #Renal colic 2/2 Left ureteral calculus: improved -CT AP revealed mild left hydroureteronephrosis suggestive of acute obstruction. -Urology (Dr. Ely) consulted. Recommendations appreciated. -High likelihood of passage of 3mm left UVJ stone with hydration and flomax -Continue IV fluids -Tamsulosin 0.4mg daily -No signs of sepsis, no antibiotics indicated at this time. #Hypertensive urgency -Likely 2/2 medication noncompliance that was aggravated by renal colic -Cr elevated today at 1.4 -IV fluids restarted -Lisinopril 20mg BId decreased to daily -Continue HCTZ 12.5mg daily and Amlodipine 10mg daily -Labetalol 200mg BID started. -Coreg discontinued. -Cardiology (Dr. Burton) consulted. REcommendations appreciated. -Continue Lisinopril, HCTZ and amlodipine -Needs outpatient work-up to exclude secondary hypertension -Nonpharmacologic measures like weight loss, salt restriction and exercise to control HTN -Echo: LV normal in size. Moderate concentric LVH. LV systolic function normal. No regional wall motion abnormalities. EF 60-65%. RV systolic function normal. LA size normal. RA size normal. Mild MR. Mild TR. RV systolic pressure normal. Mild AR. No pericardial effusion. -Emphasized importance of medication noncompliance. #FEN -IV 1/2 NS @100ml/hr -Electrolytes wnl, routine bmp monitoring -Sodium controlled diet #Prophylaxis -Heparin 5000unit sq tid #Disposition -full code -admit to med-surg Visit type - Emergency Visit Emergency Visit: Yes ED Registration Date: 11/24/18 Care time: The patient presented to the Emergency Department on the above date and was hospitalized for further evaluation of their emergent condition. - New Patient This patient is new to me today: No - Critical Care Critical Care patient: No
[2018-11-26] MEDS: SODIUM CHLORIDE 0.45% 1,000 ML IV SCH (17:58)
--- NOTE | 2018-11-26 19:23 | PN ---
Teaching Attending Note Name of Resident: rTish Smiley ATTENDING PHYSICIAN STATEMENT I saw and evaluated the patient. I reviewed the resident's note and discussed the case with the resident. I agree with the resident's findings and plan as documented. SUBJECTIVE: Patient feels better, but continues to have elevated blood pressure. OBJECTIVE: Vital Signs Period Temp Pulse Resp BP Sys/Ellis Pulse Ox Last 24 Hr 97.1 F-98.9 F 56-110 16-20 162-183/93-122 97-97 GENERAL: The patient is awake, alert, and fully oriented, in no acute distress. HEAD: Normal with no signs of trauma. EYES: PERRLA, EOMI, sclera anicteric, conjunctiva clear. ENT: Ears normal, oropharynx clear without exudates, moist mucous membranes. NECK: Trachea midline, full range of motion, supple. LUNGS: Breath sounds equal, clear to auscultation bilaterally. HEART: Regular rate and rhythm, S1, S2 without murmur, rub or gallop. ABDOMEN: Soft, nontender, nondistended, normoactive bowel sounds. EXTREMITIES: 2+ pulses, warm, well-perfused, no edema. NEUROLOGICAL: Cranial nerves II through XII grossly intact. Normal speech, normal gait. PSYCH: Normal mood, normal affect. SKIN: Warm, dry, normal turgor, no rashes or lesions noted Laboratory Results - last 24 hr 11/24/18 11/24/18 11/25/18 20:25 20:29 05:50 WBC 5.3 RBC 4.62 Hgb 14.8 Hct 42.7 MCV 92.5 MCH 32.0 MCHC 34.7 RDW 13.3 Plt Count 232 MPV 7.8 Absolute Neuts (auto) 3.0 Neutrophils % 57.0 D Lymphocytes % 35.2 D Monocytes % 6.5 Eosinophils % 0.6 Basophils % 0.7 Nucleated RBC % 0 Sodium 139 Potassium 3.3 L Chloride 104 Carbon Dioxide 28 Anion Gap 7 L BUN 11 Creatinine 1.2 Creat Clearance w eGFR > 60 Random Glucose 97 Calcium 9.2 Total Bilirubin 0.6 AST 18 ALT 23 Alkaline Phosphatase 88 Total Protein 7.2 Albumin 3.8 Urine Color Straw Urine Appearance Clear Urine pH 6.0 Ur Specific Beals 1.005 L Urine Protein Negative Urine Glucose (UA) Negative Urine Ketones Negative Urine Blood 1+ H Urine Nitrite Negative Urine Bilirubin Negative Urine Urobilinogen Negative Ur Leukocyte Esterase Negative Urine WBC (Auto) 1 Urine RBC (Auto) <1 Urine Bacteria Rare Active Medications Generic Name Dose Route Start Last Admin Trade Name Aure PRN Reason Stop Dose Admin Acetaminophen 650 mg 11/24/18 15:30 11/25/18 01:50 Tylenol Oral Solution - PO 650 mg Q6H PRN Administration HEADACHE Amlodipine Besylate 10 mg 11/25/18 10:00 11/25/18 09:09 Norvasc - PO 10 mg DAILY GIDEON Administration Heparin Sodium (Porcine) 5,000 unit 11/24/18 06:00 11/25/18 13:31 Heparin - SQ Not Given TID GIDEON Hydrochlorothiazide 12.5 mg 11/25/18 11:30 11/25/18 12:15 Hctz - PO 12.5 mg DAILY GIDEON Administration Sodium Chloride 1,000 mls @ 150 mls/hr 11/24/18 18:45 11/25/18 06:49 1/2 Normal Saline IV 150 mls/hr ASDIR GIDEON Administration Lisinopril 20 mg 11/24/18 02:39 11/25/18 09:09 Prinivil PO 20 mg BID GIDEON Administration Morphine Sulfate 2 mg 11/24/18 05:27 Morphine Sulfate IVPUSH Q3H PRN PAIN LEVEL 7 - 10 Tamsulosin HCl 0.4 mg 11/25/18 08:30 11/25/18 09:09 Flomax - PO 0.4 mg DAILY@[address] AP: Evaluation of the thoracoabdominal aorta demonstrates no CT evidence of dissection. Mild left hydroureteronephrosis is noted with associated mild perirenal and periureteral fluid accumulation is suggestive of acute obstruction. A 2 to 3 mm calcification is seen within the left paramedian aspect of the mid to lower pelvis which may represent a ureteral calculus versus an incidental calcified phleboliths. A follow-up abdomen/pelvic CT study may be performed at this time (without additional intravenous contrast) which would allow opacification of the left ureter and more accurate localization of the described calcification. ASSESSMENT AND PLAN:Patient is a 48 year old male presented to the ED with Left flank pain x 1 day. # Calculus of distal left ureter with 3mm left UVJ stne: patient has no further pain. on IVF and flomax continue # Hydronephrosis ; will repeat UA since no gross hematuria as per patient. # Hypertensive urgency will add Hctz , and added Coreg per cardio. DVT Px:On Heparin 5000 IU sq TID Code Status: Full Code
--- NOTE | 2018-11-26 19:28 | PN ---
Teaching Attending Note Name of Resident: Trish Smiley ATTENDING PHYSICIAN STATEMENT I saw and evaluated the patient. I reviewed the resident's note and discussed the case with the resident. I agree with the resident's findings and plan as documented. SUBJECTIVE: Patient has no further pain, comfortable, no headache. OBJECTIVE: Vital Signs Temperature 98.4 F 11/26/18 14:37 Pulse Rate 90 11/26/18 14:37 Respiratory Rate 17 11/26/18 14:37 Blood Pressure 150/114 H 11/26/18 14:37 O2 Sat by Pulse Oximetry (%) 98 11/26/18 09:00 GENERAL: The patient is awake, alert, and fully oriented, in no acute distress. HEAD: Normal with no signs of trauma. EYES: PERRLA, EOMI, sclera anicteric, conjunctiva clear. ENT: Ears normal, oropharynx clear without exudates, moist mucous membranes. NECK: Trachea midline, full range of motion, supple. LUNGS: Breath sounds equal, clear to auscultation bilaterally. HEART: Regular rate and rhythm, S1, S2 without murmur, rub or gallop. ABDOMEN: Soft, nontender, nondistended, normoactive bowel sounds. EXTREMITIES: 2+ pulses, warm, well-perfused, no edema. NEUROLOGICAL: Cranial nerves II through XII grossly intact. Normal speech, normal gait. PSYCH: Normal mood, normal affect. SKIN: Warm, dry, normal turgor, no rashes or lesions noted CBCD WBC 5.3 K/mm3 (4.0-10.0) 11/25/18 05:50 RBC 4.62 M/mm3 (4.00-5.60) 11/25/18 05:50 Hgb 14.8 GM/dL (11.7-16.9) 11/25/18 05:50 Hct 42.7 % (35.4-49) 11/25/18 05:50 MCV 92.5 fl (80-96) 11/25/18 05:50 MCHC 34.7 g/dl (32.0-35.9) 11/25/18 05:50 RDW 13.3 % (11.9-15.9) 11/25/18 05:50 Plt Count 232 K/MM3 (134-434) 11/25/18 05:50 MPV 7.8 fl (7.5-11.1) 11/25/18 05:50 CMP Sodium 138 mmol/L (136-145) 11/26/18 05:30 Potassium 4.1 mmol/L (3.5-5.1) 11/26/18 05:30 Chloride 100 mmol/L (98-107) 11/26/18 05:30 Carbon Dioxide 28 mmol/L (21-32) 11/26/18 05:30 Anion Gap 9 MMOL/L (8-16) 11/26/18 05:30 BUN 13 mg/dL (7-18) 11/26/18 05:30 Creatinine 1.4 mg/dL (0.55-1.3) H 11/26/18 05:30 Creat Clearance w eGFR 54.32 (>60) 11/26/18 05:30 Random Glucose 89 mg/dL (74-106) 11/26/18 05:30 Calcium 9.5 mg/dL (8.5-10.1) 11/26/18 05:30 Total Bilirubin 0.6 mg/dL (0.2-1) 11/24/18 20:29 AST 18 U/L (15-37) 11/24/18 20:29 ALT 23 U/L (13-61) 11/24/18 20:29 Alkaline Phosphatase 88 U/L (45-117) 11/24/18 20:29 Total Protein 7.2 g/dl (6.4-8.2) 11/24/18 20:29 Albumin 3.8 g/dl (3.4-5.0) 11/24/18 20:29 CARDIAC ENZYMES Creatine Kinase 365 U/L (26-308) H 11/23/18 22:30 Troponin I 0.02 ng/ml (0.00-0.05) 11/23/18 22:30 Current Medications Generic Name Dose Route Start Last Admin Trade Name Freq PRN Reason Stop Dose Admin Acetaminophen 650 mg 11/24/18 15:30 11/26/18 05:58 Tylenol Oral Solution - PO 650 mg Q6H PRN Administration HEADACHE Amlodipine Besylate 10 mg 11/25/18 10:00 11/26/18 09:34 Norvasc - PO 10 mg DAILY GIDEON Administration Heparin Sodium (Porcine) 5,000 unit 11/24/18 06:00 11/26/18 14:29 Heparin - SQ Not Given TID [facility] Hydrochlorothiazide 12.5 mg 11/25/18 11:30 11/26/18 09:34 Hctz - PO 12.5 mg DAILY GIDEON Administration Sodium Chloride 1,000 mls @ 100 mls/hr 11/26/18 11:00 11/26/18 17:58 1/2 Normal Saline IV 100 mls/hr ASDIR GIDEON Administration Labetalol HCl 200 mg 11/26/18 22:00 Normodyne - PO BID GIDEON Lisinopril 20 mg 11/27/18 10:00 Prinivil PO DAILY [facility] Morphine Sulfate 2 mg 11/24/18 05:27 Morphine Sulfate IVPUSH Q3H PRN PAIN LEVEL 7 - 10 Tamsulosin HCl 0.4 mg 11/25/18 08:30 11/26/18 09:34 Flomax - PO 0.4 mg DAILY@0830 GIDEON Administration Urine Test Results Urine Color Straw 11/24/18 20:25 Urine Appearance Clear 11/24/18 20:25 Urine pH 6.0 (5.0-8.0) 11/24/18 20:25 Ur Specific Holt 1.005 (1.010-1.035) L 11/24/18 20:25 Urine Protein Negative (NEGATIVE) 11/24/18 20:25 Urine Glucose (UA) Negative (NEGATIVE) 11/24/18 20:25 Urine Ketones Negative (NEGATIVE) 11/24/18 20:25 Urine Blood 1+ (NEGATIVE) H 11/24/18 20:25 Urine Nitrite Negative (NEGATIVE) 11/24/18 20:25 Urine Bilirubin Negative (<2.0 mg/dL) 11/24/18 20:25 Ur Leukocyte Esterase Negative (NEGATIVE) 11/24/18 20:25 Urine Bacteria Rare /hpf (NONE SEEN) 11/24/18 20:25 Urine Mucus Rare 11/23/18 16:15 CT AP: Evaluation of the thoracoabdominal aorta demonstrates no CT evidence of dissection. Mild left hydroureteronephrosis is noted with associated mild perirenal and periureteral fluid accumulation is suggestive of acute obstruction. A 2 to 3 mm calcification is seen within the left paramedian aspect of the mid to lower pelvis which may represent a ureteral calculus versus an incidental calcified phleboliths. A follow-up abdomen/pelvic CT study may be performed at this time (without additional intravenous contrast) which would allow opacification of the left ureter and more accurate localization of the described calcification. ASSESSMENT AND PLAN: Patient is a 48 year old male presented to the ED with Left flank pain x 1 day. # Calculus of distal left ureter with 3mm left UVJ stne: patient has no further pain. on IVF and flomax continue, most likely passed the stone. # Hydronephrosis: follow with urology as outpatient. no gross hematuria as per patient. # Hypertensive urgency will add Hctz , will change to Labetolol since blood pressure is running high. DVT Px:On Heparin 5000 IU sq TID Code Status: Full Code
[2018-11-26] MEDS: LABETALOL HCL 200 MG TABLET (FP) PO SCH (21:25)
[2018-11-27] MEDS: SODIUM CHLORIDE 0.45% 1,000 ML IV SCH (05:11)
[2018-11-27] MEDS: HEPARIN NA (PORCINE) 5,000 UNITS/ML 1ML VIAL SQ SCH (06:11)
[2018-11-27 06:35] VITALS: TEMP 97.8
[2018-11-27 07:17] LABS: ANION GAP 5 MMOL/L (8-16); BLOOD UREA NITROGEN 14 mg/dL (7-18); CHLORIDE 103 mmol/L (98-107); CO2 32 mmol/L (21-32); CREATININE 1.3 mg/dL (0.55-1.3); GLUCOSE,RANDOM 93 mg/dL (74-106); MAGNESIUM 2.1 mg/dL (1.8-2.4); PHOSPHOROUS 4.2 mg/dL (2.5-4.9); POTASSIUM 3.7 mmol/L (3.5-5.1); SODIUM 139 mmol/L (136-145)
--- NOTE | 2018-11-27 08:16 | PN ---
Teaching Attending Note Name of Resident: Trish Smiley ATTENDING PHYSICIAN STATEMENT I saw and evaluated the patient. I reviewed the resident's note and discussed the case with the resident. I agree with the resident's findings and plan as documented. SUBJECTIVE: Patient is feeling better, blood pressure improved on Labetolol. OBJECTIVE: Vital Signs Temperature 97.8 F 11/27/18 06:33 Pulse Rate 66 11/27/18 06:33 Respiratory Rate 20 11/27/18 06:33 Blood Pressure 148/102 H 11/27/18 06:33 O2 Sat by Pulse Oximetry (%) 97 11/26/18 21:00 GENERAL: The patient is awake, alert, and fully oriented, in no acute distress. HEAD: Normal with no signs of trauma. EYES: PERRLA, EOMI, sclera anicteric, conjunctiva clear. ENT: Ears normal, oropharynx clear without exudates, moist mucous membranes. NECK: Trachea midline, full range of motion, supple. LUNGS: Breath sounds equal, clear to auscultation bilaterally. HEART: Regular rate and rhythm, S1, S2 without murmur, rub or gallop. ABDOMEN: Soft, nontender, nondistended, normoactive bowel sounds. EXTREMITIES: 2+ pulses, warm, well-perfused, no edema. NEUROLOGICAL: Cranial nerves II through XII grossly intact. Normal speech, normal gait. PSYCH: Normal mood, normal affect. SKIN: Warm, dry, normal turgor, no rashes or lesions noted CBCD WBC 5.3 K/mm3 (4.0-10.0) 11/25/18 05:50 RBC 4.62 M/mm3 (4.00-5.60) 11/25/18 05:50 Hgb 14.8 GM/dL (11.7-16.9) 11/25/18 05:50 Hct 42.7 % (35.4-49) 11/25/18 05:50 MCV 92.5 fl (80-96) 11/25/18 05:50 MCHC 34.7 g/dl (32.0-35.9) 11/25/18 05:50 RDW 13.3 % (11.9-15.9) 11/25/18 05:50 Plt Count 232 K/MM3 (134-434) 11/25/18 05:50 MPV 7.8 fl (7.5-11.1) 11/25/18 05:50 CMP Sodium 139 mmol/L (136-145) 11/27/18 05:40 Potassium 3.7 mmol/L (3.5-5.1) 11/27/18 05:40 Chloride 103 mmol/L (98-107) 11/27/18 05:40 Carbon Dioxide 32 mmol/L (21-32) 11/27/18 05:40 Anion Gap 5 MMOL/L (8-16) L 11/27/18 05:40 BUN 14 mg/dL (7-18) 11/27/18 05:40 Creatinine 1.3 mg/dL (0.55-1.3) 11/27/18 05:40 Creat Clearance w eGFR 59.17 (>60) 11/27/18 05:40 Random Glucose 93 mg/dL (74-106) 11/27/18 05:40 Calcium 9.0 mg/dL (8.5-10.1) 11/27/18 05:40 Total Bilirubin 0.6 mg/dL (0.2-1) 11/24/18 20:29 AST 18 U/L (15-37) 11/24/18 20:29 ALT 23 U/L (13-61) 11/24/18 20:29 Alkaline Phosphatase 88 U/L (45-117) 11/24/18 20:29 Total Protein 7.2 g/dl (6.4-8.2) 11/24/18 20:29 Albumin 3.8 g/dl (3.4-5.0) 11/24/18 20:29 CARDIAC ENZYMES Creatine Kinase 365 U/L (26-308) H 11/23/18 22:30 Troponin I 0.02 ng/ml (0.00-0.05) 11/23/18 22:30 Current Medications Generic Name Dose Route Start Last Admin Trade Name Freq PRN Reason Stop Dose Admin Acetaminophen 650 mg 11/24/18 15:30 11/26/18 05:58 Tylenol Oral Solution - PO 650 mg Q6H PRN Administration HEADACHE Amlodipine Besylate 10 mg 11/25/18 10:00 11/26/18 09:34 Norvasc - PO 10 mg DAILY GIDEON Administration Heparin Sodium (Porcine) 5,000 unit 11/24/18 06:00 11/27/18 06:11 Heparin - SQ 5,000 unit TID GIDEON Administration Hydrochlorothiazide 12.5 mg 11/25/18 11:30 11/26/18 09:34 Hctz - PO 12.5 mg DAILY GIDEON Administration Sodium Chloride 1,000 mls @ 100 mls/hr 11/26/18 11:00 11/27/18 05:11 1/2 Normal Saline IV 100 mls/hr ASDIR GIDEON Administration Labetalol HCl 200 mg 11/26/18 22:00 11/26/18 21:25 Normodyne - PO 200 mg BID GIDEON Administration Lisinopril 20 mg 11/27/18 10:00 Prinivil PO DAILY G[facility] Tamsulosin HCl 0.4 mg 11/25/18 08:30 11/26/18 09:34 Flomax - PO 0.4 mg DAILY@0830 GIDEON Administration will discontinue CT AP: Evaluation of the thoracoabdominal aorta demonstrates no CT evidence of dissection. Mild left hydroureteronephrosis is noted with associated mild perirenal and periureteral fluid accumulation is suggestive of acute obstruction. A 2 to 3 mm calcification is seen within the left paramedian aspect of the mid to lower pelvis which may represent a ureteral calculus versus an incidental calcified phleboliths. A follow-up abdomen/pelvic CT study may be performed at this time (without additional intravenous contrast) which would allow opacification of the left ureter and more accurate localization of the described calcification. ASSESSMENT AND PLAN: Patient is a 48 year old male presented to the ED with Left flank pain x 1 day. # Hypertensive urgency will discharge the patient home on Labetolol , hctz and norvasc. since blood pressure is running high. # ARF improving, suggested to drink plenty of fluid. # Calculus of distal left ureter with 3mm left UVJ stne: patient has no further pain. s/p IVF . most likely passed the stone. # Hydronephrosis: follow with urology as outpatient. no gross hematuria as per patient. Code Status: Full Code Discharge patient home.
[2018-11-27] MEDS: TAMSULOSIN HCL 0.4 MG CAP PO SCH (09:48)
[2018-11-27] MEDS: LABETALOL HCL 200 MG TABLET (FP) PO SCH (09:48)
[2018-11-27] MEDS: amLODIPine BESYLATE 10 MG TABLET (FP) PO SCH (09:48)
[2018-11-27] MEDS: HYDROCHLOROTHIAZIDE 12.5 MG CAPSULE (FP) PO SCH (09:48)
[2018-11-27] MEDS ORDERED: LISINOPRIL 20 MG TABLET (FP) PO SCH (10:00)
[2018-11-27 12:07] VITALS: BP 165/107; PULSE 82
--- NOTE | 2018-11-27 12:07 | DS ---
Physical Exam: SUBJECTIVE: Patient seen and examined at bedside this morning. No acute events overnight. Patient has no new complaints. OBJECTIVE: Vital Signs Temperature 97.8 F 11/27/18 10:00 Pulse Rate 82 11/27/18 10:00 Respiratory Rate 20 11/27/18 10:00 Blood Pressure 165/107 H 11/27/18 10:00 O2 Sat by Pulse Oximetry (%) 98 11/27/18 09:00 PHYSICAL EXAM GENERAL: The patient is awake, alert, and fully oriented, in no acute distress. HEAD: Normal with no signs of trauma. EYES: PERRLA, EOMI, sclera anicteric, conjunctiva clear. ENT: Ears normal, oropharynx clear without exudates, moist mucous membranes. NECK: Trachea midline, full range of motion, supple. LUNGS: Breath sounds equal, clear to auscultation bilaterally. HEART: Regular rate and rhythm, S1, S2 without murmur, rub or gallop. ABDOMEN: Soft, nontender, nondistended, normoactive bowel sounds. EXTREMITIES: 2+ pulses, warm, well-perfused, no edema. NEUROLOGICAL: Cranial nerves II through XII grossly intact. Normal speech, normal gait. PSYCH: Normal mood, normal affect. SKIN: Warm, dry, normal turgor, no rashes or lesions noted LABS Laboratory Results - last 24 hr 11/27/18 05:40 Sodium 139 Potassium 3.7 Chloride 103 Carbon Dioxide 32 Anion Gap 5 L BUN 14 Creatinine 1.3 Creat Clearance w eGFR 59.17 Random Glucose 93 Calcium 9.0 Phosphorus 4.2 Magnesium 2.1 --CT AP: Evaluation of the thoracoabdominal aorta demonstrates no CT evidence of dissection. Mild left hydroureteronephrosis is noted with associated mild perirenal and periureteral fluid accumulation is suggestive of acute obstruction. A 2 to 3 mm calcification is seen within the left paramedian aspect of the mid to lower pelvis which may represent a ureteral calculus versus an incidental calcified phleboliths. A follow-up abdomen/pelvic CT study may be performed at this time (without additional intravenous contrast) which would allow opacification of the left ureter and more accurate localization of the described calcification. --Echo: LV normal in size. Moderate concentric LVH. LV systolic function normal. No regional wall motion abnormalities. EF 60-65%. RV systolic function normal. LA size normal. RA size normal. Mild MR. Mild TR. RV systolic pressure normal. Mild AR. No pericardial effusion. HOSPITAL COURSE: Date of Admission:11/24/18 Date of Discharge: 11/27/18 Patient is a 48 year old male with past medical history of HTN, presented with Left flank pain for 1 day. At the ED, patient was noted to have elevated blood pressure of 197/124. CT scan was done which revealed left UVJ stone. Urology was consulted and patient was started on Tamsulosin 0.4mg daily. Patient reported having passed "small pepper-like grains" in the urine with flank pain resolved. Patient was also noted to have elevated blood pressure. Echo was done. Cardiology was consulted. Patient was started on Amlodipine 10mg, HCTZ 12.5mg daily, Lisinopril 20mg daily and Labetalol 200mg BID. Patient was discharged with all 4 medications and with instructions to follow-up with PCP, cardiology and urology. Minutes to complete discharge: 42 Discharge Summary Reason For Visit: RENAL COLIC HYPERTENSION Condition: Improved - Instructions Diet, Activity, Other Instructions: Your visit You were admitted to the hospital because you had left lower belly and back pain. CAT scan revealed you had a small kidney stone. You were seen by the urologist and you were given medications to help pass the stone. You were also noted to have elevated blood pressure. You were given blood pressure medications. Please continue taking these medications once discharged. You will need to follow-up with the asphalt still operator for further work-up of your high blood pressure. Medications Please take the following medications: 1. Amlodipine 10mg daily. 2. Hydrochlorothiazide 12.5 mg daily. 3. Labetalol 200mg twice a day. 4. Lisinopril 20mg daily. Drink plenty of fluid to avoid kidney stones at least 2 liters Follow-up -Please follow-up with the asphalt still operator (Dr. Ruiz) within 1 week. -Follow-up with the urologist (Dr. Ely) within 1-2 weeks. -Follow-up with your primary care doctor (Dr. Youngblood) today, since you hav an appointment Additional info Call 911 or go to the ED if with any worsening fever, chills, headache, nausea, vomiting, chest pain, shortness of breath, abdominal pain, bloody urine/stools, or any new concerns noted. Referrals: Aron Ruiz MD [Staff Physician] - 1 Week Jose D Youngblood MD [Primary Care Provider] - 1 Week John Ely MD [Staff Physician] - 2 Weeks Disposition: HOME - Home Medications Comprehensive Discharge Medication List: Ambulatory Orders Amlodipine Besylate [Norvasc -] 10 mg PO DAILY #30 tablet 11/27/18 Hydrochlorothiazide [Hctz -] 12.5 mg PO DAILY #30 cap 11/27/18 Labetalol HCl [Normodyne -] 200 mg PO BID #60 tablet 11/27/18 Lisinopril [Prinivil] 20 mg PO DAILY #30 tablet 11/27/18 This patient is new to me today: No Emergency Visit: Yes ED Registration Date: 11/24/18 Care time: The patient presented to the Emergency Department on the above date and was hospitalized for further evaluation of their emergent condition. Critical Care patient: No - Discharge Referral Referred to [facility] No
== END 2018-11-27 11:52 | disposition home or self-care (01) | DRG 305 ==
LOC: JER 15:27 → JERBED 23:28 → OBSVTOIN 11-24 02:41 → J8W 11-24 03:47
PROVIDERS: ADMIT Internal Medicine; ATTEND Internal Medicine
DX: I16.0 Hypertensive urgency (principal); N17.9 Acute kidney failure, unspecified; N13.2 Hydronephrosis with renal and ureteral calculous obstruction; E78.5 Hyperlipidemia, unspecified; Z91.14 Patient's other noncompliance with medication regimen
CPT/HCPCS: 36415; 71046-TC-FY; 71275-TC; 74174-TC; 80048; 80053; 80061; 81003; 81015; 82550; 82553; 83036; 83721; 83735; 84100; 84484; 85025; 93005; 93010; 93306-TC; 99282-25; G0378; J1644; J7030